=== PATIENT | female | born 1955 | race Caucasian/White ===

== ENCOUNTER 2018-06-30 08:17 | Emergency (ER) | payer SELFPAY ==
[~2018-06-30] VITALS: Ht 167.6 cm; Wt 60.2 kg
[2018-06-30 08:45] VITALS: BP 113/74
--- NOTE | 2018-06-30 09:01 | NUR ---
PT HAS RIGHT EYE SWELLING, PAIN, REDNESS, AND TEARING SINCE TUESDAY. PT STATED THAT SHE HAS BEEN SICK SINCE TUESDAY. REPORTS MULTIPLE SURGERIES IN R EYE W/ BLINDNESS IN THAT EYE.
--- NOTE | 2018-06-30 09:30 | NUR ---
Patient given discharge instructions and they have confirmed that they understand the instructions. Patient ambulatory with steady gait.
== END 2018-06-30 09:32 | disposition home or self-care (01) ==
LOC: ED 09:10
DX: H10.31 Unspecified acute conjunctivitis, right eye (principal); L03.213 Periorbital cellulitis
CPT/HCPCS: 99283